=== PATIENT | male | born 1990 | race Caucasian/White ===

== ENCOUNTER 2021-04-28 19:42 | Emergency (ER) | payer BC ==
[~2021-04-28] VITALS: Ht 177.8 cm; Wt 77.1 kg
--- NOTE | 2021-04-28 20:35 | NUR ---
PT BIB [facility] 87 FROM [facility] FOR OD ON [place], GIVEN 4 DOSES OF NASAL NARCAN AT THE [facility]. PT A/O X3, NO SOB OR LABORED BREATHING. CLEAR SPEECH, COMPLETE SENTENCES. DR. ALEXANDER AT BEDSIDE, MSE IN PROGRESS.
[2021-04-28] MEDS ORDERED: IV NORMAL SALINE 1000 ML BAG IV ONE (20:45)
--- NOTE | 2021-04-28 20:50 | NUR ---
LAB AT BEDSIDE.
--- NOTE | 2021-04-28 20:53 | NUR ---
PT REFUSED BLOOD DRAW, DR. ALEXANDER MADE AWARE.
--- NOTE | 2021-04-28 22:41 | NUR ---
PHLEB AT BEDSIDE.
[2021-04-28] MEDS ORDERED: ONDANSETRON 4 MG/2 ML VIAL IV ONE (22:45)
[2021-04-28] MEDS ORDERED: ONDANSETRON 4 MG/2 ML VIAL ONE (22:47)
[2021-04-28 22:56] LABS: HEMATOCRIT 42.3 % (36.7-47.1); MEAN CORPUSCULAR HEMOGLOBIN 30.4 uug (23.8-33.4); MEAN CORPUSCULAR VOLUME 88.7 fL (73.0-96.2); PLATELET COUNT (AUTO) 420 K/uL (152-348)
[2021-04-28 22:57] LABS: CARBON DIOXIDE 29 mmol/L (21-32); CHLORIDE 102 mmol/L (98-107); CREATININE 1.2 mg/dL (0.6-1.3); GLUCOSE 101 mg/dL (74-106); POTASSIUM 4.8 mmol/L (3.5-5.1); UREA NITROGEN, BLOOD 17 mg/dL (7-18)
[2021-04-28 23:03] LABS: ETHANOL < 3 MG/DL (0-0)
[2021-04-28 23:10] LABS: ALANINE AMINOTRANSFERASE 50 U/L (16-63); ALKALINE PHOSPHATASE 77 U/L (50-136); ASPARTATE AMINOTRANSFERASE 47 U/L (15-37); BILIRUBIN,DIRECT < 0.1 mg/dL (0.0-0.2); BILIRUBIN,TOTAL 0.3 mg/dL (0.2-1.0); TOTAL PROTEIN, SERUM 8.4 g/dL (6.4-8.2)
--- NOTE | 2021-04-29 00:22 | NUR ---
ASSISTED PT TO USE URINAL.
[2021-04-29 00:57] LABS: *AMPHETAMINE, URINE POSITIVE (NEGATIVE); *CANNABINOID, URINE NEGATIVE (NEGATIVE); *COCCAINE, URINE NEGATIVE (NEGATIVE); *OPIATE, URINE NEGATIVE (NEGATIVE); *PHENCYCLIDINE SCREEN,URINE NEGATIVE (NEGATIVE)
[2021-04-29] MEDS ORDERED: NALO4SPR NS (01:30)
[2021-04-29] MEDS ORDERED: ONDA4TAB11 PO (01:39)
--- NOTE | 2021-04-29 01:59 | NUR ---
Patient discharged to home in stable condition. No changes in LOC, denies anypain/discomfort upon discharge. Steady gait. No n/v/d. Written and verbal after care instructions given. Patient verbalizes understanding of instructions. Stressed follow up or return to ER for worsening s/s.
[2021-04-29 02:02] VITALS: BP 120/76
== END 2021-04-29 02:00 | disposition home or self-care (01) ==
LOC: ER 19:45
DX: T40.411A Poisoning by fentanyl or fentanyl analogs, accidental (unintentional), initial encounter (principal); R51.9 Headache, unspecified; R11.0 Nausea; Y92.9 Unspecified place or not applicable; Z91.013 Allergy to seafood; D72.829 Elevated white blood cell count, unspecified
CPT/HCPCS: 36415; 71045; 80048; 80076; 80307; 80320; 83880; 84484; 85025; 85730; 93005; 96361; 96374; 99285; J2405; 70030-TC; A4663; G0480; J7030